=== PATIENT | male | born 2000 | race Caucasian/White ===

== ENCOUNTER 2023-09-27 20:03 | Emergency (ER) | payer MEDICAID, OTHER ==
[~2023-09-27] VITALS: Ht 172.7 cm; Wt 86.2 kg
[2023-09-27 20:24] VITALS: BP 143/85; PULSE 116; RESP 16; TEMP 98; O2SAT 98
[2023-09-27] MEDS ORDERED: NACL 0.9% 1,000 ML IV ONE (20:45)
[2023-09-27 21:16] LABS: BASOPHILS # (AUTO) 0.1 K/uL (0.00-0.22); BASOPHILS % (AUTO) 0.5 % (0.0-2.0); EOSINOPHILS # (AUTO) 0.3 K/uL (0-0.4); EOSINOPHILS % (AUTO) 2.6 % (0.0-4.0); HEMATOCRIT 46.9 % (36-52); LYMPHOCYTES # (AUTO) 2.5 K/uL (2.0-11.5); LYMPHOCYTES % (AUTO) 23.2 % (20.5-51.1); MEAN CORPUSCULAR HEMOGLOBIN 28 pg (27-31); MEAN CORPUSCULAR HGB CONC 34 g/dL (33-37); MEAN CORPUSCULAR VOLUME 81.8 fL (80-94); MONOCYTES % (AUTO) 9.4 % (1.7-9.3); NEUTROPHILS # (AUTO) 6.8 K/uL (1.8-7.7); NEUTROPHILS % (AUTO) 64.3 % (42.2-75.2); PLATELET COUNT (AUTO) 271 K/uL (140-450); RED BLOOD CELL COUNT(AUTO) 5.73 MIL/uL (4.20-6.10); RED CELL DISTRIBUTION WIDTH 14.7 % (11.6-13.7); WHITE BLOOD COUNT (AUTO) 10.6 K/uL (4.8-10.8)
[2023-09-27 21:31] VITALS: O2SAT 99
[2023-09-27 21:50] LABS: ALANINE AMINOTRANSFERASE 36 U/L (12-78); ALKALINE PHOSPHATASE 140 U/L (50-136); ANION GAP 14.6 (8-16); ASPARTATE AMINOTRANSFERASE 15 U/L (15-37); CALCIUM 9.4 mg/dL (8.5-10.1); CARBON DIOXIDE 28.2 mmol/L (21-32); CHLORIDE 102 mmol/L (98-107); GFR ARICAN-AMERICAN 120 mL/min (>90); GFR NON ARICAN-AMERICAN 99 mL/min (>90); GLUCOSE 96 mg/dL (74-106); LIPASE 25 U/L (16-77); POTASSIUM 3.8 mmol/L (3.5-5.1); SODIUM SERUM 141 mmol/L (136-145); TOTAL BILIRUBIN 0.5 mg/dL (0.0-1.0); TOTAL PROTEIN, SERUM 9.2 g/dL (6.4-8.2); UREA NITROGEN, BLOOD 8 mg/dL (7-18)
[2023-09-27] MEDS ORDERED: [UNRECOGNIZED DRUG - CODE] PO (23:57)
[2023-09-28 00:19] VITALS: BP 109/61; PULSE 78; RESP 17; TEMP 97.9; O2SAT 98
== END 2023-09-28 00:08 | disposition home or self-care (01) ==
LOC: MED 20:03
DX: K64.8 Other hemorrhoids (principal); Z79.899 Other long term (current) drug therapy
CPT/HCPCS: 36415; 74176; 80053; 83690; 84484; 85025; 86886; 86900; 86901; 96360; 99284; J7030

== ENCOUNTER 2023-11-01 09:30 | Day surgery (SDC) | payer OTHER ==
[~2023-11-01] VITALS: Ht 175.3 cm; Wt 84.8 kg
[~2023-11-01 09:30] MED LIST: [UNRECOGNIZED DRUG - CODE] PO
[2023-11-01] MEDS ORDERED: fentaNYL citrate 0.05 MG/ML VIAL ONE (11:01)
[2023-11-01] MEDS ORDERED: LIDOCAINE 2% 100 MG/5 ML UJET TP ONE (11:02)
[2023-11-01] MEDS ORDERED: MIDAZOLAM 5 MG/5 ML VIAL ONE (11:02)
[2023-11-01] MEDS: fentaNYL citrate 0.05 MG/ML VIAL IVP ONE (11:10)
== END 2023-11-01 12:20 | disposition home or self-care (01) ==
LOC: MDS 09:30 → MMU 09:33 → MDS 12:20
PROVIDERS: ATTEND Internal Medicine Gastroenterology
DX: K62.5 Hemorrhage of anus and rectum (principal); F32.A Depression, unspecified; E78.00 Pure hypercholesterolemia, unspecified; Z88.8 Allergy status to other drugs, medicaments and biological substances; Z79.899 Other long term (current) drug therapy; Z98.890 Other specified postprocedural states
CPT/HCPCS: 45378; J3010; J2250

== ENCOUNTER 2023-11-12 19:05 | Emergency (ER) | payer OTHER ==
[~2023-11-12] VITALS: Ht 172.7 cm; Wt 85.7 kg
[2023-11-12 20:36] VITALS: BP 103/62; PULSE 88; RESP 18; TEMP 98.6; O2SAT 100
[2023-11-12 22:49] LABS: BASOPHILS # (AUTO) 0.1 K/uL (0.00-0.22); BASOPHILS % (AUTO) 0.7 % (0.0-2.0); EOSINOPHILS # (AUTO) 0.4 K/uL (0-0.4); EOSINOPHILS % (AUTO) 3.5 % (0.0-4.0); HEMATOCRIT 44.3 % (36-52); HEMOGLOBIN 15.2 g/dL (12.0-18.0); LYMPHOCYTES # (AUTO) 3.4 K/uL (2.0-11.5); LYMPHOCYTES % (AUTO) 28.3 % (20.5-51.1); MEAN CORPUSCULAR HEMOGLOBIN 28 pg (27-31); MEAN CORPUSCULAR HGB CONC 34 g/dL (33-37); MEAN CORPUSCULAR VOLUME 82.2 fL (80-94); MONOCYTES % (AUTO) 8.3 % (1.7-9.3); NEUTROPHILS # (AUTO) 7.1 K/uL (1.8-7.7); NEUTROPHILS % (AUTO) 59.2 % (42.2-75.2); PLATELET COUNT (AUTO) 291 K/uL (140-450); RED BLOOD CELL COUNT(AUTO) 5.39 MIL/uL (4.20-6.10); RED CELL DISTRIBUTION WIDTH 14.4 % (11.6-13.7)
[2023-11-12 23:01] LABS: ANION GAP 10.9 (8-16); CALCIUM 9.4 mg/dL (8.5-10.1); CARBON DIOXIDE 29.3 mmol/L (21-32); CREATININE 0.8 mg/dL (0.6-1.3); POTASSIUM 4.2 mmol/L (3.5-5.1)
[2023-11-13 00:24] LABS: FLU A ANTIGEN POSITIVE (NEGATIVE); FLU B ANTIGEN NEGATIVE (NEGATIVE)
[2023-11-13 00:36] VITALS: BP 103/62; PULSE 88; RESP 18; TEMP 98.6; O2SAT 100
== END 2023-11-13 00:36 | disposition home or self-care (01) ==
LOC: MED 19:05
DX: J10.1 Influenza due to other identified influenza virus with other respiratory manifestations (principal); Z20.822 Contact with and (suspected) exposure to COVID-19; F41.9 Anxiety disorder, unspecified; K64.8 Other hemorrhoids; G25.3 Myoclonus; Z79.899 Other long term (current) drug therapy
CPT/HCPCS: 36415; 71045; 80048; 85025; 93005; 99285

== ENCOUNTER 2024-06-23 09:20 | Day surgery (SDC) | payer OTHER ==
[~2024-06-23] VITALS: Ht 172.7 cm; Wt 88.9 kg
[2024-06-23] MEDS ORDERED: HYDROGEN PEROXIDE 3% 240 ML BTL TP ONE (10:38)
[2024-06-23] MEDS ORDERED: MIDAZOLAM 5 MG/5 ML VIAL ONE (11:02)
[2024-06-23] MEDS ORDERED: fentaNYL citrate 0.05 MG/ML VIAL ONE (11:02)
[2024-06-23] MEDS ORDERED: PROPOFOL 200 MG/20 ML VIAL IV ONE (11:03)
[2024-06-23] MEDS ORDERED: ONDANSETRON 4 MG/2 ML VIAL ONE (11:03)
[2024-06-23] MEDS ORDERED: LIDOCAINE 2% 100 MG/5 ML SYR IVP ONE (11:20)
[2024-06-23] MEDS: BUPIVACAINE-MPF 0.25% 30 ML VIAL INJ ONE (12:08)
[2024-06-23] MEDS: LIDOCAINE/EPI 1% 1:100000 20 ML VIAL INJ ONE (12:08)
== END 2024-06-23 14:20 | disposition home or self-care (01) ==
LOC: MDS 09:20 → MMU 09:21 → MDS 14:20
PROVIDERS: ATTEND Surgery
DX: L05.91 Pilonidal cyst without abscess (principal); K64.1 Second degree hemorrhoids; F32.A Depression, unspecified
CPT/HCPCS: 11772; 71045; J2001; J2003; J2250; J2405; J2704; J3010; J3490; J7120